=== PATIENT | female | born 1965 | race Caucasian/White ===

== ENCOUNTER 2020-03-23 11:12 | Observation (INO) ==
[2020-03-23 11:52] LABS: ABS Basophils 0.1 10^3/ul (0-0.2); ABS Eosinophils 0.1 10^3/ul (0-0.6); ABS Lymphocytes 1.4 10^3/ul (1.0-4.8); ABS Monocytes 0.5 10^3/ul (0-0.8); ABS Neutrophils 2.7 10^3/ul (1.5-7.7); Eosinophil % 2.6 %; Hematocrit 38 % (35-47); Hemoglobin 13.2 g/dL (12.0-16.0); Mean Corpuscular HGB Conc 35 g/dL (31-36); Mean Corpuscular Hemoglobin 34 pg (27-31); Mean Corpuscular Volume 96 fL (80-97); Mean Platelet Volume 7.5 fL (7.4-10.4); Platelet Count 327 10^3/uL (150-450); Red Blood Count 3.93 10^6 /uL (3.70-4.87); Red Cell Distribution Width 14 % (10-15); White Blood Count 4.8 10^3/uL (3.5-10.8)
[2020-03-23 12:15] LABS: Calcium 9.1 mg/dL (8.6-10.3); EGFR African American 107.7 (>60); Potassium 3.3 mmol/L (3.5-5.0)
[2020-03-23 12:20] LABS: Activated Partial Thrombo Time 28.3 seconds (26.0-38.0); INR 0.98 (0.82-1.09)
[2020-03-23 12:22] LABS: HCG Pregnancy 1.36 mIU/mL
[2020-03-23] MEDS ORDERED: Clindamycin 900 MG/D5W BAG 900 MG/50 ML BAG IVPB ONE (13:00)
[2020-03-23] MEDS ORDERED: Ondansetron 4 mg VIAL 2 MG/ML 2 ml VIAL ONE (13:11)
[2020-03-23] MEDS ORDERED: oxyCODONE SR 10 mg TAB ONE (13:11)
[2020-03-23] MEDS ORDERED: Lidocaine 1% VIAL 10 MG/ML VIAL ONE (13:24)
[2020-03-23] MEDS ORDERED: Iohexol 350 (CONTRAST) 200 ML MDV IV ONE (13:25)
[2020-03-23] MEDS ORDERED: Heparin 2 UNITS/ML 1000 mls 2,000 ML IV ONE (13:32)
[2020-03-23] MEDS ORDERED: fentaNYL 250 mcg/5 ml 50 MCG/ML 5 ml VIAL (250 MCG) ONE (13:47)
[2020-03-23] MEDS ORDERED: Midazolam 5 mg/5 ml VIAL 1 mg/ml 5 ml VIAL (5 mg) ONE (13:47)
[2020-03-23] MEDS ORDERED: nitroGLYCERIN DRIP 25,000 MCG/250 ML BTL ONE (13:47)
[2020-03-23] MEDS ORDERED: HYDROmorphone PCA 1 MG/ML Titrat per Protocol PCA SCH (14:00)
[2020-03-23] MEDS ORDERED: Prochlorperazine 5 mg/ml 2 ml VIAL (10 mg) ONE ×2 (15:20→15:50)
[2020-03-23] MEDS ORDERED: HYDROmorphone 1 MG/1 ML SYRINGE ONE (15:27)
[2020-03-23] MEDS ORDERED: NS 0.9% 1000 ml BAG 1,000 ML IV SCH (19:15)
[2020-03-23] MEDS: KCL 20 MEQ/100 ML IVPREMIX 20 MEQ/100 ML BAG IV SCH ×2 (19:37→23:27)
[2020-03-23] MEDS: Ondansetron 4 mg VIAL 2 MG/ML 2 ml VIAL IV SCH (22:18)
[2020-03-24] MEDS: Ondansetron 4 mg VIAL 2 MG/ML 2 ml VIAL IV SCH (03:01)
[2020-03-24 08:00] VITALS: BP 126/65
[2020-03-24] MEDS ORDERED: HYDROcodone/ACETAMIN 5/325 mg TAB PO PRN (08:30)
[2020-03-24] MEDS ORDERED: Ketorolac 10 mg TAB (NF) PO SCH (08:40)
[2020-03-24] MEDS ORDERED: CMCS: OMEGA-3 FATTY ACID 1000 mg(NF) PO SCH (09:00)
== END 2020-03-24 11:55 | disposition home or self-care (01) ==
LOC: CHICATH 11:12 → SSU 11:12
PROVIDERS: ADMIT Internal Medicine; ATTEND Internal Medicine